=== PATIENT | female | born 1975 | race Caucasian/White ===

== ENCOUNTER 2017-03-29 15:23 | Emergency (ER) | payer BC ==
[~2017-03-29] VITALS: Ht 160 cm; Wt 112.3 kg
[~2017-03-29 15:23] MED LIST: AMOX875T PO; FERR325T PO; HYDR-3580 PO; PRENCAP6 PO; VITA400C28
[2017-03-29 15:29] VITALS: BP 119/71; PULSE 71; RESP 16; TEMP 97.8; O2SAT 100
[2017-03-29] MEDS ORDERED: CYAN100 PO (15:41)
[2017-03-29] MEDS ORDERED: BACT800T5 PO (16:05)
--- NOTE | 2017-03-29 16:05 | PD ---
HPI Chief Complaint: Skin Problem Time Seen by Provider: 15:51 Travel History International Travel<30 days: No Contact w/Intl Traveler<30days: No Traveled to known affect area: No History of Present Illness HPI 41-year-old female here with right thumb pain and swelling. She reports several days ago her fingernail looked up at the nail fold and since then she's had pain and swelling at the site. She reports she's similar symptoms with a previous paronychia. She denies fever or chills. She was normal sensation and full range of motion of finger. PFSH Past Medical History ?: Not LMP: 03/07 Past Surgical History Abdominal Surgery: Yes (GASTRIC BYPASS) Section: Yes (X2) Tonsillectomy: Yes Social History Alcohol Use: No Tobacco Use: No Substance Use: No Allergies-Medications (Allergen,Severity, Reaction): Coded Allergies: adhesive tape (Verified Allergy, Unknown, 03/29/17) diclofenac (Verified Adverse Reaction, Unknown, POST GASTRIC BYPASS, ) etodolac (Verified Adverse Reaction, Unknown, POST GASTRIC BYPASS, 03/29/17 ) flurbiprofen (Verified Adverse Reaction, Unknown, POST GASTRIC BYPASS, 03/29/17) ibuprofen (Verified Adverse Reaction, Unknown, POST GASTRIC BYPASS, ) indomethacin (Verified Adverse Reaction, Unknown, POST GASTRIC BYPASS, 03/29/17) ketoprofen (Verified Adverse Reaction, Unknown, POST GASTRIC BYPASS, ) ketorolac (Verified Adverse Reaction, Unknown, POST GASTRIC BYPASS, ) naproxen (Verified Adverse Reaction, Unknown, POST GASTRIC BYPASS, 03/29/17 ) oxaprozin (Verified Adverse Reaction, Unknown, POST GASTRIC BYPASS, ) Reported Meds & Prescriptions Reported Meds & Active Scripts Active Reported Vitamin B12 (Cyanocobalamin) 100 Mcg Tab 100 Mcg PO DAILY Review of Systems Except as stated in HPI: all other systems reviewed are Neg Physical Exam Narrative GENERAL: Alert well-appearing female. SKIN: Warm and dry. HEAD: Normocephalic. EYES: No injection or drainage. NECK: Supple, trachea midline. MUSCULOSKELETAL: No cyanosis, or edema. Right hand: Mild swelling and erythema noted to the right thumb medial nail fold. Data Data Last Documented VS Vital Signs Date Time Temp Pulse Resp B/P (MAP) Pulse Ox O2 Delivery O2 Flow Rate FiO2 03/29/17 15:29 97.8 71 16 119/71 (87) 100 MDM Medical Decision Making Medical Screen Exam Complete: Yes Emergency Medical Condition: Yes Differential Diagnosis Paronychia, abscess, cellulitis Narrative Course 41-year-old female with pain and swelling in her nail fold of her right thumb. Symptoms present for several days. On exam she has what is consistent with an early paronychia. Incision and drainage done of the area. No purulence at this time. She'll be put on antibiotics and instructed to do warm soaks several times per day. Follow-up with her primary doctor. Diagnosis Primary Impression: Paronychia of thumb, right Referrals: Primary Care Physician Scripts Sulfamethoxazole-Trimethoprim (Bactrim DS) 800-160 Mg Tab 1 TAB PO BID for Infection, #20 TAB 0 Refills Prov: Dara Yepez 03/29/17 Disposition: 01 DISCHARGE HOME Condition: Stable Dara Yepez Mar 29, 2017 16:05
== END 2017-03-29 16:16 | disposition home or self-care (01) ==
LOC: PHEFT 15:23
DX: L03.011 Cellulitis of right finger (principal)
CPT/HCPCS: 99283